=== PATIENT | male | born 2000 | race Two or more races ===

== ENCOUNTER 2023-09-03 11:12 | Emergency (ER) | payer BC, OTHER ==
[~2023-09-03] VITALS: Ht 177.8 cm; Wt 94.0 kg
[2023-09-03 11:59] VITALS: BP 138/94; PULSE 68; TEMP 98.7; O2SAT 99
[2023-09-03] MEDS: IPRATROPIUM BROM 0.5 MG/2.5ML INH SOL NEB ONE (12:20)
[2023-09-03] MEDS: ALBUTEROL SULF 2.5 MG/0.5ML(0.5%) NEB SOLN NEB ONE (12:20)
[2023-09-03] MEDS ORDERED: PRED20TA2 PO (12:21)
[2023-09-03] MEDS ORDERED: ALBU108A5 IN (12:21)
[2023-09-03 12:51] VITALS: RESP 19
== END 2023-09-03 12:36 | disposition home or self-care (01) ==
LOC: ER 11:14
DX: J20.9 Acute bronchitis, unspecified (principal); Z79.899 Other long term (current) drug therapy
CPT/HCPCS: 71045; 94640; 99283; J7644